=== PATIENT | male | born 1990 | race Caucasian/White ===

== ENCOUNTER 2021-03-04 22:26 | Emergency (ER) | payer OTHER ==
[2021-03-05 01:59] LABS: HEMOGLOBIN 16.7 gm/dl (14.0-17.5); RED BLOOD COUNT 5.63 M/UL (4.20-5.50); WHITE BLOOD COUNT 6.2 K/UL (4.5-11.0)
[2021-03-05 02:20] LABS: BUN/CREATININE RATIO 13 (0-10)
== END 2021-03-05 04:12 | disposition home or self-care (01) ==
LOC: ER1 22:26
PROVIDERS: Family Medicine
DX: E11.65 Type 2 diabetes mellitus with hyperglycemia (principal); K62.5 Hemorrhage of anus and rectum; R10.30 Lower abdominal pain, unspecified
CPT/HCPCS: 80053; 81001; 82272; 83690; 85025; 99284; Q9967

== ENCOUNTER → 2022-03-28 | Emergency (ER) | payer OTHER | END | disposition home or self-care (01) | LOC: ER1 22:22 | DX: M25.561 Pain in right knee (principal); E11.9 Type 2 diabetes mellitus without complications | CPT/HCPCS: 73564; 99283 ==

== ENCOUNTER 2022-07-13 01:23 | Emergency (ER) | payer OTHER ==
[2022-07-13] MEDS ORDERED: AMOXICILLIN500 M1 PO (03:07)
== END 2022-07-13 04:51 | disposition home or self-care (01) ==
LOC: ER1 01:23
DX: K02.9 Dental caries, unspecified (principal)
CPT/HCPCS: 64400; 99282; J0561